=== PATIENT | male | born 2000 | race Caucasian/White ===

== ENCOUNTER 2022-02-12 13:29 | Emergency (ER) | payer BC ==
[2022-02-12] MEDS ORDERED: CYCLOBENZAPRINE10 MG PO (16:20)
[2022-02-12] MEDS ORDERED: IBUPROFEN600 MG PO (16:20)
[2022-02-12] MEDS ORDERED: ONDANSETRON ODT4 MG PO (16:21)
[2022-02-12] MEDS ORDERED: AMOX TR-K CLV1 EAC4 PO (16:26)
== END 2022-02-12 17:06 | disposition home or self-care (01) ==
LOC: ER1 13:29
DX: S06.0X9A Concussion with loss of consciousness of unspecified duration, initial encounter (principal); S02.40DA Maxillary fracture, left side, initial encounter for closed fracture; S52.512A Displaced fracture of left radial styloid process, initial encounter for closed fracture; S41.151A Open bite of right upper arm, initial encounter; S21.159A Open bite of unspecified front wall of thorax without penetration into thoracic cavity, initial encounter; Y04.1XXA Assault by human bite, initial encounter
CPT/HCPCS: 70450; 70486; 72125; 72131; 73110; 73564; 99284